=== PATIENT | male | born 1965 | race Caucasian/White ===

== ENCOUNTER 2016-04-27 13:19 | Emergency (ER) | payer MEDICARE, OTHER ==
[~2016-04-27] VITALS: Ht 180.3 cm; Wt 113.6 kg
[~2016-04-27 13:19] MED LIST: ACETAMINOPHEN W1 TA6 PO; ATIVAN 0.50.5 MG/TAB; BACLOFEN20 MG PO; CELEXA40 MG PO; FLEXERIL 1010 MG/TAB PO; GLUCOPHAGE500 MG/TAB PO; MED FOR DEPRESSION; NORCO 325 MG-51 TAB PO; PERCOCET 325 MG1 TA2 PO; REQUIP 1MG T1 MG/TAB; ULTRAM ER100 MG PO; ZOLOFT 50MG50 MG
[2016-04-27] MEDS ORDERED: [UNRECOGNIZED DRUG - OTHER] (13:53)
[2016-04-27] MEDS ORDERED: NORCO 325 MG-7.1 TAB PO (14:34)
[2016-04-27] MEDS ORDERED: FLEXERIL 1010 MG/TAB PO (14:34)
[2016-04-27 15:15] VITALS: BP 133/88; PULSE 75; TEMP 96.9
[2016-06-20] MEDS ORDERED: GLUCOPHAGE500 MG/TAB PO (13:02)
== END 2016-04-27 15:17 | disposition home or self-care (01) ==
LOC: COL.ER 13:19
DX: M54.42 Lumbago with sciatica, left side (principal); E11.9 Type 2 diabetes mellitus without complications; Z79.84 Long term (current) use of oral hypoglycemic drugs
CPT/HCPCS: J1885

== ENCOUNTER → 2016-06-20 | Outpatient (CLI) | payer MEDICARE, OTHER ==
[~2016-06-20] VITALS: Ht 180.3 cm; Wt 113.6 kg
[~2016-06-20] MED LIST changes: +NORCO 325 MG-7.1 TAB PO; +[UNRECOGNIZED DRUG - OTHER]
[2016-06-20 13:08] VITALS: BP 144/86; PULSE 77
[2016-06-20 14:40] VITALS: BP 151/77; PULSE 86
== END ==
LOC: COL.RAD 12:36
DX: M48.06 Spinal stenosis, lumbar region (principal)
CPT/HCPCS: J3301

== ENCOUNTER → 2016-07-23 | Outpatient (CLI) | payer MEDICARE, OTHER ==
[~2016-07-23] VITALS: Ht 180.3 cm; Wt 109.5 kg
[2016-07-23 12:09] VITALS: BP 142/90; PULSE 88
[2016-07-23 13:06] VITALS: BP 125/84; PULSE 74
== END ==
LOC: COL.RAD 11:45
DX: M48.06 Spinal stenosis, lumbar region (principal)
CPT/HCPCS: J3301

== ENCOUNTER 2022-05-22 21:24 | Emergency (ER) | payer MEDICARE, OTHER ==
[~2022-05-22] VITALS: Ht 180.3 cm; Wt 104.5 kg
[2022-05-22 21:57] VITALS: TEMP 98.7
[2022-05-22 22:53] LABS: BASO # 0.1 K/mm3 (0.0-0.2); BASO % 0.6 % (0.0-2.0); EOS # 0.2 K/mm3 (0.0-0.7); GRAN # 5.7 K/mm3 (1.4-6.5); GRAN % 60.5 % (42.2-75.2); HEMATOCRIT 43.6 % (42.0-52.0); HEMOGLOBIN 15.4 g/dl (13.5-18.0); LYMPH # 2.4 K/mm3 (1.2-3.4); LYMPH % 25.6 % (20.0-51.0); MEAN CELL VOLUME 90 fl (80.0-100.0); MEAN CORPUSCULAR HEMOGLOBIN 32 pg (27-31); MEAN CORPUSCULAR HGB CONC 35 g/dl (33.0-37.0); MEAN PLATELET VOLUME 11.5 fl (7.4-10.4); PLATELET COUNT 268 K/mm3 (130-400); RED BLOOD COUNT 4.87 M/mm3 (4.20-5.60); REDCELL DISTRIBUTION WIDTH-CV 11.5 % (11.5-14.5)
[2022-05-22 23:15] LABS: ANION GAP 13 mmol/L (7-16); BLOOD UREA NITROGEN 17 mg/dL (8-26); CALCIUM 10.2 mg/dL (8.4-10.2); CARBON DIOXIDE 25 mmol/L (22-29); CHLORIDE 100 mmol/L (98-107); CREATININE, serum 1.08 mg/dL (0.72-1.25); GLUCOSE 270 mg/dL (70-99); POTASSIUM 4.4 mmol/L (3.5-4.5); SODIUM 138 mmol/L (136-145)
[2022-05-22] MEDS ORDERED: TESSALON P100 MG/CAP PO (23:23)
[2022-05-22 23:24] LABS: TROPONIN-I < 0.010 ng/mL (0.00-0.033)
[2022-05-23 01:10] VITALS: BP 154/70; PULSE 76
== END 2022-05-23 01:10 | disposition home or self-care (01) ==
LOC: COL.ER 21:24
PROVIDERS: Emergency Medicine
DX: E11.65 Type 2 diabetes mellitus with hyperglycemia (principal); J02.9 Acute pharyngitis, unspecified; R07.89 Other chest pain; M79.10 Myalgia, unspecified site; Z20.822 Contact with and (suspected) exposure to COVID-19; Z28.310 Unvaccinated for COVID-19
CPT/HCPCS: J1885; J7030

== ENCOUNTER 2022-05-25 10:36 | Emergency (ER) | payer MEDICARE, OTHER ==
[~2022-05-25] VITALS: Ht 180.3 cm; Wt 104.5 kg
[~2022-05-25 10:36] MED LIST changes: +TESSALON P100 MG/CAP PO
[2022-05-25 10:40] VITALS: TEMP 98.5
[2022-05-25 11:00] LABS: BASO # 0.1 K/mm3 (0.0-0.2); BASO % 0.5 % (0.0-2.0); EOS # 0.3 K/mm3 (0.0-0.7); EOS % 3.3 % (0.0-4.0); GRAN # 6.6 K/mm3 (1.4-6.5); HEMATOCRIT 44.6 % (42.0-52.0); HEMOGLOBIN 16.1 g/dl (13.5-18.0); LYMPH % 20.8 % (20.0-51.0); MEAN CELL VOLUME 88 fl (80.0-100.0); MEAN CORPUSCULAR HEMOGLOBIN 32 pg (27-31); MEAN CORPUSCULAR HGB CONC 36 g/dl (33.0-37.0); MEAN PLATELET VOLUME 11.2 fl (7.4-10.4); MONO # 0.8 K/mm3 (0.1-0.6); MONO % 8.1 % (1.7-9.3); PLATELET COUNT 296 K/mm3 (130-400); RED BLOOD COUNT 5.06 M/mm3 (4.20-5.60); REDCELL DISTRIBUTION WIDTH-CV 11.4 % (11.5-14.5)
[2022-05-25 11:24] LABS: ALANINE AMINOTRANSFERASE 29 U/L (0-55); ALBUMIN 3.8 gm/dL (3.5-5.0); ALKALINE PHOSPHATASE 56 U/L (40-150); ANION GAP 13 mmol/L (7-16); AST,SGOT 20 U/L (5-34); BLOOD UREA NITROGEN 9 mg/dL (8-26); CARBON DIOXIDE 26 mmol/L (22-29); CHLORIDE 100 mmol/L (98-107); CREATININE, serum 1.06 mg/dL (0.72-1.25); GLUCOSE 256 mg/dL (70-99); LIPASE 76 U/L (8-78); POTASSIUM 4.1 mmol/L (3.5-4.5); SODIUM 139 mmol/L (136-145); TOTAL PROTEIN 8.1 gm/dL (6.2-8.1)
[2022-05-25 11:31] LABS: TROPONIN-I < 0.010 ng/mL (0.00-0.033)
[2022-05-25] MEDS ORDERED: ZITHROMAX Z PA250 MG PO (11:43)
[2022-05-25] MEDS ORDERED: AMOXICILLIN 8751 TAB PO (11:43)
[2022-05-25 12:19] VITALS: BP 173/101; PULSE 81
== END 2022-05-25 13:39 | disposition home or self-care (01) ==
LOC: COL.ER 10:36
PROVIDERS: Emergency Medicine
DX: R05.9 Cough, unspecified (principal); E11.65 Type 2 diabetes mellitus with hyperglycemia
CPT/HCPCS: J0696; J1885; J7030

== ENCOUNTER 2023-09-15 17:18 | Emergency (ER) | payer MEDICARE, OTHER ==
[~2023-09-15] VITALS: Ht 180.3 cm; Wt 104.5 kg
[~2023-09-15 17:18] MED LIST changes: +AMOXICILLIN 8751 TAB PO; +ZITHROMAX Z PA250 MG PO
[2023-09-15 19:45] VITALS: BP 134/90; PULSE 104; TEMP 98.3
== END 2023-09-15 19:45 | disposition home or self-care (01) ==
LOC: COL.ER 17:18
DX: S61.532A Puncture wound without foreign body of left wrist, initial encounter (principal); W34.09XA Accidental discharge from other specified firearms, initial encounter; Y93.E9 Activity, other interior property and clothing maintenance